=== PATIENT | female | born 1940 | race Caucasian/White ===

== ENCOUNTER → 2016-08-05 | Outpatient (CLI) | payer MEDICARE, OTHER ==
[~2016-08-05] MED LIST: ALDACTONE25 MG PO; ASPIRIN LOW DOS81 MG PO; ASPIRIN81 M1 PO; ATENOLOL25 MG PO; ATENOLOL50 M1 PO; ATENOLOL50 MG PO; CARDIZEM CD; CARDIZEM CD120 MG PO; CIPRO500 MG PO; COZAAR50 MG PO; DARVOCET N 1001 TAB PO; DIGOXIN0.125 MG PO; DILTIAZEM 24HR120 MG PO; DILTIAZEM120 MG PO; FIBER CON; FIBERCON500 MG PO; GLUCOPHAGE500 MG PO; HYDROCODONE BIT1 T11 PO; LASIX40 MG PO; LEVOXYL0.088 MG PO; LIBRAX 5 MG-2.51 CA1 PO; MAG-OX 400400 MG PO; METFORMIN500 MG PO; NEXIUM40 MG PO; Oscal,Oyster S500 MG PO; POTASSIUM CHLOR8 MEQ PO; POTASSIUM20 MEQ PO; PRAVACHOL40 MG PO; PRAVACHOL80 MG PO; PROAIR HFA0.09 MG/AC IH; PROAIR HFA8.5 GM IH; PROAIR INH; PROVENTIL2 MG/5 ML DEVI; SYNTHROID0.088 MG PO; TENORMIN50 MG PO; VITAMIN D1000 IU PO; VITAMIN D31000 IU PO
[2016-08-05 15:04] LABS: BASO # 0.1 10*3/uL (0.0-0.1); BASO % 0.8 % (0.0-1.0); EOS # 0.2 10*3/uL (0.0-0.4); EOS % 2.2 % (1.0-4.0); HEMATOCRIT 36.5 % (37.0-47.0); HEMOGLOBIN 11.6 g/dl (12.0-16.0); IG # 0.1 10*3/uL (0.0-0.1); LYMPH # 2.2 10*3/uL (1.3-4.4); MEAN CELL VOLUME 88.8 fl (81.0-99.0); MEAN CORPUSCULAR HGB 28.2 pg (27.0-31.0); MEAN CORPUSCULAR HGB CONC 31.8 g/dl (33.0-37.0); MEAN PLATELET VOLUME 9.5 fl (9.6-12.3); MONO # 0.5 10*3/uL (0.1-1.0); MONO % 7.2 % (3.0-9.0); NEUT # 4.4 10*3/uL (2.3-7.9); PLATELET COUNT AUTOMATED 235 10*3/uL (130-400); RED BLOOD COUNT 4.11 10*6/uL (4.10-5.10); RED CELL DISTRI WIDTH 15.3 % (0-14.5); WHITE BLOOD COUNT 7.4 10*3/uL (4.8-10.8)
[2016-08-05 15:22] LABS: ALBUMIN 3.5 gm/dl (3.1-4.5); POTASSIUM 4.1 mmol/L (3.5-5.1)
[2016-08-05 15:37] LABS: BILIRUBIN, TOTAL 0.3 mg/dl (0.2-1.0); DIGOXIN 1.03 ng/ml (0.8-2.0); THYROID STIM HORMONE (HS) 1.03 uIU/ml (0.358-4.75); TOTAL PROTEIN 7.5 gm/dL (6.4-8.2)
[2016-08-05 15:40] LABS: FERRITIN 12.6 ng/mL (10.0-291.0); VITAMIN D, 25-HYDROXY 37.7 ng/mL (30-100)
== END | disposition home or self-care (01) ==
LOC: RAD 07-31 13:30 → LAB 13:22 → RAD 13:30
PROVIDERS: Internal Medicine
DX: Z13.820 Encounter for screening for osteoporosis (principal); E11.9 Type 2 diabetes mellitus without complications; D64.89 Other specified anemias; I25.10 Atherosclerotic heart disease of native coronary artery without angina pectoris; E55.9 Vitamin D deficiency, unspecified; E03.9 Hypothyroidism, unspecified; Z78.0 Asymptomatic menopausal state

== ENCOUNTER 2016-08-19 06:24 | Emergency (ER) | payer MEDICARE, OTHER ==
[~2016-08-19] VITALS: Ht 170.1 cm; Wt 83.9 kg
[2016-08-19 07:18] LABS: BASO # 0.1 10*3/uL (0.0-0.1); BASO % 0.7 % (0.0-1.0); EOS # 0.2 10*3/uL (0.0-0.4); EOS % 2.4 % (1.0-4.0); HEMATOCRIT 36.4 % (37.0-47.0); HEMOGLOBIN 11.4 g/dl (12.0-16.0); IG # 0.1 10*3/uL (0.0-0.1); LYMPH # 2.3 10*3/uL (1.3-4.4); LYMPH % 27.8 % (27.0-41.0); MEAN CELL VOLUME 87.9 fl (81.0-99.0); MEAN CORPUSCULAR HGB 27.5 pg (27.0-31.0); MEAN CORPUSCULAR HGB CONC 31.3 g/dl (33.0-37.0); MEAN PLATELET VOLUME 9.5 fl (9.6-12.3); MONO # 0.6 10*3/uL (0.1-1.0); MONO % 7.2 % (3.0-9.0); NEUT % 61.2 % (47.0-73.0); PLATELET COUNT AUTOMATED 227 10*3/uL (130-400); RED BLOOD COUNT 4.14 10*6/uL (4.10-5.10); RED CELL DISTRI WIDTH 14.9 % (0-14.5); WHITE BLOOD COUNT 8.2 10*3/uL (4.8-10.8)
[2016-08-19 07:28] LABS: PROTHROMBIN TIME 10.6 SECONDS (9.0-12.4)
[2016-08-19 07:34] LABS: ALBUMIN 3.6 gm/dl (3.1-4.5); ALKALINE PHOSPHATASE 90 U/L (45-117); BILIRUBIN, TOTAL 0.4 mg/dl (0.2-1.0); BUN 20 mg/dl (7-24); C-REACTIVE PROTEIN 0.36 MG/DL (0-0.3); CARBON DIOXIDE 26 mmol/L (21-32); CHLORIDE 103 mmol/L (98-107); EST GLOM FILT AFRICAN AMERICAN > 60 ml/min; GLUCOSE 138 mg/dL (65-99); MAGNESIUM 1.5 mg/dL (1.5-2.1); SGOT/AST 17 IU/L (3-35); SGPT/ALT 23 U/L (12-78); SODIUM 140 mmol/L (136-145); TOTAL PROTEIN 7.3 gm/dL (6.4-8.2)
[2016-08-19 07:35] LABS: TROPONIN I < 0.015 ng/ml (<0.045)
[2016-08-19 07:44] LABS: DIGOXIN 1.64 ng/ml (0.8-2.0)
[2016-08-19 07:56] LABS: BILIRUBIN NEGATIVE (NEGATIVE); BLOOD NEGATIVE (NEGATIVE); CLARITY CLEAR (CLEAR); COLOR YELLOW (YELLOW); GLUCOSE NEGATIVE (NEGATIVE); KETONE NEGATIVE (NEGATIVE); LEUKO ESTERASE NEGATIVE (NEGATIVE); NITRITE NEGATIVE (NEGATIVE); PH 5.5 (5.0-9.0); PROTEIN NEGATIVE (NEGATIVE); SPECIFIC GRAVITY 1.015 (1.005-1.030); UROBILINOGEN 0.2 E.U./dl (0.2-1.0)
[2016-08-19 08:11] LABS: BACTERIA TRACE; URINE REFLEX COMMENT NO (NO)
[2016-08-19 08:43] VITALS: BP 119/67
[2016-08-19 09:15] LABS: LA>2 REFLEX 2 HR DRAW NOW
[2016-08-19 09:34] LABS: LA>2 RFLX FOLLOW UP AT 2 HRS 2.7 mmol/L (0.4-2.0)
[2016-08-19 11:26] LABS: LA>2 REFLEX 4 HR DRAW NOW
== END 2016-08-19 10:11 | disposition home or self-care (01) ==
LOC: ED 06:24
PROVIDERS: Emergency Medicine; Emergency Medicine Emergency Medical Services
DX: K59.00 Constipation, unspecified (principal); F41.9 Anxiety disorder, unspecified; J45.909 Unspecified asthma, uncomplicated; K21.9 Gastro-esophageal reflux disease without esophagitis; E11.9 Type 2 diabetes mellitus without complications; E03.9 Hypothyroidism, unspecified; I10 Essential (primary) hypertension; F17.200 Nicotine dependence, unspecified, uncomplicated; Z88.0 Allergy status to penicillin; Z88.6 Allergy status to analgesic agent; Z91.041 Radiographic dye allergy status; Z79.82 Long term (current) use of aspirin; Z79.899 Other long term (current) drug therapy

== ENCOUNTER → 2017-02-05 | Outpatient (CLI) | payer MEDICARE, OTHER ==
[2017-02-05 12:39] LABS: HEMATOCRIT 36.1 % (37.0-47.0); HEMOGLOBIN 11.6 g/dl (12.0-16.0); MEAN CELL VOLUME 90.5 fl (81.0-99.0); MEAN CORPUSCULAR HGB 29.1 pg (27.0-31.0); MEAN CORPUSCULAR HGB CONC 32.1 g/dl (33.0-37.0); MEAN PLATELET VOLUME 9.7 fl (9.6-12.3); RED BLOOD COUNT 3.99 10*6/uL (4.10-5.10); RED CELL DISTRI WIDTH 15.1 % (0-14.5); WHITE BLOOD COUNT 8.8 10*3/uL (4.8-10.8)
[2017-02-05 13:20] LABS: ALBUMIN 3.5 gm/dl (3.1-4.5); CREATININE 1.31 mg/dL (0.55-1.02); POTASSIUM 4.5 mmol/L (3.5-5.1); TOTAL PROTEIN 7.7 gm/dL (6.4-8.2)
== END | disposition home or self-care (01) ==
LOC: LAB 12:21
DX: E03.9 Hypothyroidism, unspecified (principal); E78.00 Pure hypercholesterolemia, unspecified; D64.89 Other specified anemias

== ENCOUNTER → 2017-04-10 | Outpatient (CLI) | payer MEDICARE, OTHER ==
[2017-04-10 11:20] LABS: BASO # 0.1 10*3/uL (0.0-0.1); BASO % 0.9 % (0.0-1.0); EOS # 0.2 10*3/uL (0.0-0.4); EOS % 1.9 % (1.0-4.0); HEMATOCRIT 37.2 % (37.0-47.0); HEMOGLOBIN 11.7 g/dl (12.0-16.0); LYMPH # 2.2 10*3/uL (1.3-4.4); LYMPH % 28.3 % (27.0-41.0); MEAN CELL VOLUME 90.1 fl (81.0-99.0); MEAN CORPUSCULAR HGB 28.3 pg (27.0-31.0); MEAN CORPUSCULAR HGB CONC 31.5 g/dl (33.0-37.0); MEAN PLATELET VOLUME 9.8 fl (9.6-12.3); MONO # 0.5 10*3/uL (0.1-1.0); MONO % 6.5 % (3.0-9.0); NEUT # 4.8 10*3/uL (2.3-7.9); NEUT % 61.4 % (47.0-73.0); PLATELET COUNT AUTOMATED 226 10*3/uL (130-400); RED BLOOD COUNT 4.13 10*6/uL (4.10-5.10); RED CELL DISTRI WIDTH 14.7 % (0-14.5); WHITE BLOOD COUNT 7.9 10*3/uL (4.8-10.8)
[2017-04-10 11:50] LABS: CREATININE 1.08 mg/dL (0.55-1.02); POTASSIUM 4.7 mmol/L (3.5-5.1)
[2017-04-10 11:50] LABS: IRON 49 ug/dL (50-170); TOTAL IRON BINDING CAPACITY 468 ug/dl (250-450)
[2017-04-10 12:03] LABS: DIGOXIN 1.52 ng/ml (0.8-2.0); THYROID STIM HORMONE (HS) 0.735 uIU/ml (0.358-4.75)
[2017-04-10 12:10] LABS: FERRITIN 12.3 ng/mL (10.0-291.0)
== END ==
LOC: LAB 10:34
PROVIDERS: Internal Medicine Cardiovascular Disease; Nurse Practitioner Family
DX: I25.10 Atherosclerotic heart disease of native coronary artery without angina pectoris (principal); D64.9 Anemia, unspecified; I48.1 Persistent atrial fibrillation

== ENCOUNTER → 2017-08-05 | Outpatient (CLI) | payer OTHER | END | disposition home or self-care (01) | LOC: RAD 11:12 | DX: M47.896 Other spondylosis, lumbar region (principal); D50.9 Iron deficiency anemia, unspecified; E11.9 Type 2 diabetes mellitus without complications ==

== ENCOUNTER 2017-10-23 20:51 | Inpatient (IN) | payer OTHER ==
[~2017-10-23] VITALS: Ht 170.1 cm; Wt 82.6 kg
--- NOTE | ~2017-10-23 | EKG ---
[place], [place] ELECTROCARDIOGRAM REPORT NAME: KAREN LY UNIT #: [id number] ROOM: 518 DOCTOR: RONAK DRAFT REPORT BIRTHDATE: [birth year] [facility] Test Date: 2017-10-23 Test Time: 20:57:21 Pat Name: KAREN LY Department: ER Room: 5 Gender: F Release Specialist: : 1940 Requested By: STAN DENIS Order Number: [id number] Reading MD: Enzo Moreno MD Measurements Intervals [place] Rate: 86 P: 56 OR: 202 QRS: 3 QRSD: 152 T: 193 QT: 405 QTc: 485 Interpretive Statements Sinus rhythm Left bundle branch block No previous ECG available for comparison Electronically Signed On 10-26-2017 14:02:16 PDT by Enzo Moreno MD Electronically Signed On 10-26-2017 14:03:33 PDT by Enzo Moreno MD CM:EKGRPT:ELECTROCARDIOGRAM REPORT [id number] 1403 STAN RUSSO DRAFT REPORT STAN DENIS DO
--- NOTE | ~2017-10-23 | EKG ---
[place], [place] ELECTROCARDIOGRAM REPORT NAME: KAREN LY UNIT #: [id number] ROOM: 518 DOCTOR: GLEN KLINE MD BIRTHDATE: [birth year] DOS: 10/23/2017 TIME: 2057 hours Normal sinus rhythm at 86 beats per minute with occasional atrial pacing is noted. Complete left bundle branch block. An abnormal ECG. No previous tracing is available for comparison. GLEN KLINE MD CM:EKGRPT:ELECTROCARDIOGRAM REPORT [id number] 1811 GLEN KLINE MD
--- NOTE | ~2017-10-23 | EKG ---
[place], [place] ELECTROCARDIOGRAM REPORT NAME: KAREN LY UNIT #: [id number] ROOM: 518 DOCTOR: GLEN KLINE MD BIRTHDATE: [birth year] DOS: 10/24/2017 TIME: 0002 hours. FINDINGS: 1. Normal sinus rhythm at 82 beats per minute with an occasional atrial pacing. 2. Complete left bundle-branch block. 3. No previous tracing is available for comparison. GLEN KLINE MD CM:EKGRPT:ELECTROCARDIOGRAM REPORT [id number] 1811 GLEN KLINE MD
--- NOTE | ~2017-10-23 | EKG ---
[place], [place] ELECTROCARDIOGRAM REPORT NAME: KAREN LY UNIT #: [id number] ROOM: [facility] DOCTOR: RONAK DRAFT REPORT BIRTHDATE: [birth year] [facility] Test Date: 2017-10-24 Test Time: 00:02:10 Pat Name: KAREN LY Department: 5 Room: [facility] Gender: F Assembly Technician: : 1940 Requested By: STAN DENIS Order Number: [id number] Reading MD: Enzo Moreno MD Measurements Intervals [place] Rate: 82 P: -9 IA: 225 QRS: -15 QRSD: 153 T: 173 QT: 392 QTc: 458 Interpretive Statements Atrial-paced complexes Prolonged IA interval( first degree block) Left bundle branch block Electronically Signed On 10-26-2017 14:04:34 PDT by Enzo Moreno MD CM:EKGRPT:ELECTROCARDIOGRAM REPORT 0002 1404 STAN RUSSO DRAFT REPORT STAN DENIS DO
--- NOTE | ~2017-10-23 | EKG ---
[place], [place] ELECTROCARDIOGRAM REPORT NAME: KAREN LY UNIT #: [id number] ROOM: [facility] DOCTOR: RONAK DRAFT REPORT BIRTHDATE: [birth year] [facility] Test Date: 2017-10-24 Test Time: 02:57:22 Pat Name: KAREN LY Department: 5 Room: [facility] Gender: F Computer Tester: : 1940 Requested By: STAN DENIS Order Number: [id number] Reading MD: Enzo Moreno MD Measurements Intervals [place] Rate: 81 P: 0 OR: 232 QRS: -24 QRSD: 148 T: 164 QT: 414 QTc: 481 Interpretive Statements Sinus rhythm Prolonged OR interval- first degree block Left bundle branch block Electronically Signed On 10-26-2017 14:05:02 PDT by Enzo Moreno MD CM:EKGRPT:ELECTROCARDIOGRAM REPORT [id number] 1405 STAN RUSSO DRAFT REPORT STAN DENIS DO
[2017-10-23 20:55] VITALS: BP 147/84
[2017-10-23 21:08] LABS: BASO # 0.1 10*3/uL (0.0-0.1); BASO % 0.4 % (0.0-1.0); EOS # 0.1 10*3/uL (0.0-0.4); EOS % 1.1 % (1.0-4.0); LYMPH # 3.5 10*3/uL (1.3-4.4); LYMPH % 30.3 % (27.0-41.0); MEAN CELL VOLUME 89.9 fl (81.0-99.0); MEAN CORPUSCULAR HGB 28.5 pg (27.0-31.0); MEAN CORPUSCULAR HGB CONC 31.7 g/dl (33.0-37.0); MEAN PLATELET VOLUME 9.7 fl (9.6-12.3); MONO % 8.6 % (3.0-9.0); NEUT # 6.7 10*3/uL (2.3-7.9); NEUT % 57.1 % (47.0-73.0); PLATELET COUNT AUTOMATED 208 10*3/uL (130-400); RED BLOOD COUNT 4.56 10*6/uL (4.10-5.10); RED CELL DISTRI WIDTH 15.7 % (0-14.5); WHITE BLOOD COUNT 11.7 10*3/uL (4.8-10.8)
[2017-10-23 21:16] VITALS: BP 136/82
[2017-10-23 21:18] LABS: ACT PARTIAL THROMBO TIME 20.3 SECONDS (20.8-31.5)
[2017-10-23 21:25] LABS: ALBUMIN 3.7 gm/dl (3.1-4.5); ALKALINE PHOSPHATASE 77 U/L (45-117); BUN 26 mg/dl (7-24); CHLORIDE 101 mmol/L (98-107); CREATININE 2.06 mg/dL (0.55-1.02); POTASSIUM 4.4 mmol/L (3.5-5.1); SGOT/AST 22 IU/L (3-35); SGPT/ALT 37 U/L (12-78); SODIUM 138 mmol/L (136-145); TOTAL PROTEIN 7.4 gm/dL (6.4-8.2)
[2017-10-23 21:27] LABS: TROPONIN I < 0.015 ng/ml (<0.045)
[2017-10-23 22:21] VITALS: BP 156/79
[2017-10-23 23:00] VITALS: BP 148/76
[2017-10-23 23:17] VITALS: BP 156/66
[2017-10-24] VITALS: BP 156/66
[2017-10-24 05:39] LABS: CREATININE 1.68 mg/dL (0.55-1.02); PHOSPHOROUS 4.5 mg/dL (2.5-4.9); POTASSIUM 4.3 mmol/L (3.5-5.1)
[2017-10-24 05:56] LABS: BASO # 0.1 10*3/uL (0.0-0.1); BASO % 0.7 % (0.0-1.0); EOS # 0.1 10*3/uL (0.0-0.4); EOS % 1.1 % (1.0-4.0); HEMATOCRIT 38.6 % (37.0-47.0); HEMOGLOBIN 11.9 g/dl (12.0-16.0); LYMPH % 33.3 % (27.0-41.0); MEAN CELL VOLUME 91.7 fl (81.0-99.0); MEAN CORPUSCULAR HGB 28.3 pg (27.0-31.0); MEAN CORPUSCULAR HGB CONC 30.8 g/dl (33.0-37.0); MEAN PLATELET VOLUME 10.1 fl (9.6-12.3); MONO # 0.8 10*3/uL (0.1-1.0); MONO % 9.1 % (3.0-9.0); NEUT # 4.9 10*3/uL (2.3-7.9); NEUT % 53.9 % (47.0-73.0); PLATELET COUNT AUTOMATED 187 10*3/uL (130-400); RED BLOOD COUNT 4.21 10*6/uL (4.10-5.10)
[2017-10-24 08:00] VITALS: BP 138/59
[2017-10-24 08:49] VITALS: BP 158/78
[2017-10-24 12:00] VITALS: BP 138/64
[2017-10-24 16:00] VITALS: BP 124/51
[2017-10-24 20:00] VITALS: BP 147/59
[2017-10-25] VITALS: BP 125/56
[2017-10-25 06:01] LABS: BASO # 0.1 10*3/uL (0.0-0.1); BASO % 0.7 % (0.0-1.0); EOS # 0.2 10*3/uL (0.0-0.4); EOS % 1.7 % (1.0-4.0); HEMATOCRIT 35.6 % (37.0-47.0); HEMOGLOBIN 10.9 g/dl (12.0-16.0); MEAN CELL VOLUME 91.5 fl (81.0-99.0); MEAN CORPUSCULAR HGB CONC 30.6 g/dl (33.0-37.0); MEAN PLATELET VOLUME 9.9 fl (9.6-12.3); MONO # 0.7 10*3/uL (0.1-1.0); NEUT # 4.8 10*3/uL (2.3-7.9); NEUT % 53.9 % (47.0-73.0); PLATELET COUNT AUTOMATED 158 10*3/uL (130-400); RED BLOOD COUNT 3.89 10*6/uL (4.10-5.10); WHITE BLOOD COUNT 8.9 10*3/uL (4.8-10.8)
[2017-10-25 06:29] LABS: CREATININE 1.09 mg/dL (0.55-1.02); POTASSIUM 4.4 mmol/L (3.5-5.1)
[2017-10-25 08:00] VITALS: BP 139/48
== END 2017-10-25 11:26 | disposition home or self-care (01) | DRG 391 ==
LOC: ED 20:51 → EDHOLD 22:30 → 5E 23:00
PROVIDERS: Emergency Medicine; Internal Medicine
PROC: 4B02XSZ Measurement of Cardiac Pacemaker, External Approach (ICD-10-PCS; principal; 2017-10-23)
DX: K21.0 Gastro-esophageal reflux disease with esophagitis (principal); N17.0 Acute kidney failure with tubular necrosis; D68.0 Von Willebrand disease; E44.0 Moderate protein-calorie malnutrition; E11.22 Type 2 diabetes mellitus with diabetic chronic kidney disease; I49.5 Sick sinus syndrome; E11.65 Type 2 diabetes mellitus with hyperglycemia; E03.9 Hypothyroidism, unspecified; D72.825 Bandemia; F41.9 Anxiety disorder, unspecified; K22.719 Barrett's esophagus with dysplasia, unspecified; J45.20 Mild intermittent asthma, uncomplicated; E78.2 Mixed hyperlipidemia; N18.3 Chronic kidney disease, stage 3 (moderate); I12.9 Hypertensive chronic kidney disease with stage 1 through stage 4 chronic kidney disease, or unspecified chronic kidney disease; Z96.652 Presence of left artificial knee joint; Z82.3 Family history of stroke; Z80.8 Family history of malignant neoplasm of other organs or systems; Z82.49 Family history of ischemic heart disease and other diseases of the circulatory system; Z90.710 Acquired absence of both cervix and uterus; Z95.0 Presence of cardiac pacemaker; Z88.0 Allergy status to penicillin; Z88.6 Allergy status to analgesic agent; Z88.8 Allergy status to other drugs, medicaments and biological substances; Z91.041 Radiographic dye allergy status; Z79.899 Other long term (current) drug therapy; Z79.82 Long term (current) use of aspirin; Z68.28 Body mass index [BMI] 28.0-28.9, adult

== ENCOUNTER 2019-04-04 16:08 | Inpatient (IN) | payer OTHER ==
[~2019-04-04] VITALS: Ht 170.1 cm; Wt 86.4 kg
[~2019-04-04 16:08] MED LIST changes: +KLOR-CON 1010 ME1 PO; +LASIX20 MG PO; +METOPROLOL TART50 M1 PO; +NEXIUM 24HR20 M1 PO; +TOPROL XL50 M1 PO; +VITAMIN B1250 MCG PO; +Zofran4 MG PO
[2019-04-04 16:10] VITALS: BP 151/84
[2019-04-04 16:30] LABS: BASO % 0.6 % (0.0-1.0); EOS # 0.2 10*3/uL (0.0-0.4); EOS % 2.3 % (1.0-4.0); HEMOGLOBIN 12.8 g/dl (12.0-16.0); LYMPH % 30.3 % (27.0-41.0); MEAN CELL VOLUME 89.1 fl (81.0-99.0); MEAN CORPUSCULAR HGB 27.8 pg (27.0-31.0); MEAN CORPUSCULAR HGB CONC 31.2 g/dl (33.0-37.0); MONO # 0.4 10*3/uL (0.1-1.0); MONO % 6.5 % (3.0-9.0); NEUT # 3.9 10*3/uL (2.3-7.9); NEUT % 59.7 % (47.0-73.0); PLATELET COUNT AUTOMATED 205 10*3/uL (130-400); RED CELL DISTRI WIDTH 16.5 % (0-14.5); WHITE BLOOD COUNT 6.6 10*3/uL (4.8-10.8)
[2019-04-04 16:41] LABS: ACT PARTIAL THROMBO TIME 24.5 SECONDS (20.0-32.1); INTERNATIONAL NORM RATIO 0.9 (2.0-3.5)
[2019-04-04 16:46] LABS: ALBUMIN 3.4 gm/dl (3.1-4.5); ALKALINE PHOSPHATASE 114 U/L (45-117); BUN 13 mg/dl (7-24); CHLORIDE 108 mmol/L (98-107); CREATININE 0.95 mg/dL (0.55-1.02); POTASSIUM 3.7 mmol/L (3.5-5.1); SGOT/AST 12 IU/L (3-35); SGPT/ALT 20 U/L (12-78); SODIUM 141 mmol/L (136-145)
[2019-04-04 16:49] LABS: TROPONIN I < 0.015 ng/ml (<0.045)
[2019-04-04 18:42] VITALS: BP 141/67
--- NOTE | 2019-04-04 19:44 | NUR ---
PT GIVEN BOX LUNCH . LEVAQUIN INFUSING VOICES NO COMPLAINTS . DENIES ANY WOUNDS CHRISTOPHER CONLEY RN.
[2019-04-04 19:45] VITALS: BP 144/60
[2019-04-04 21:30] VITALS: BP 142/70
--- NOTE | 2019-04-04 21:30 | NUR ---
Time: 2129 A 78 year old FEMALE admitted to under services of JONATHAN MOROCHO DO. Pt. arrived via stretcher from ER. Chief complaint: C/O SOB X 1 WEEK, AND COUGH X 1MONTH. ALFONZO SAMS
--- NOTE | 2019-04-05 03:47 | NUR ---
24 HR chart check completed.
[2019-04-05 06:25] LABS: HEMATOCRIT 42.9 % (37.0-47.0); HEMOGLOBIN 13.4 g/dl (12.0-16.0); LYMPH # 0.8 10*3/uL (1.3-4.4); LYMPH % 15.6 % (27.0-41.0); MEAN CELL VOLUME 89.6 fl (81.0-99.0); MEAN CORPUSCULAR HGB CONC 31.2 g/dl (33.0-37.0); MONO % 0.8 % (3.0-9.0); NEUT # 4.1 10*3/uL (2.3-7.9); PLATELET COUNT AUTOMATED 223 10*3/uL (130-400); RED BLOOD COUNT 4.79 10*6/uL (4.10-5.10); RED CELL DISTRI WIDTH 16.4 % (0-14.5); WHITE BLOOD COUNT 4.9 10*3/uL (4.8-10.8)
[2019-04-05 06:40] LABS: ALBUMIN 3.8 gm/dl (3.1-4.5); BUN 15 mg/dl (7-24); CHLORIDE 106 mmol/L (98-107); CHOLESTEROL 231 mg/dL (<200); CREATININE 0.93 mg/dL (0.55-1.02); PHOSPHOROUS 2.9 mg/dL (2.5-4.9); SGOT/AST 11 IU/L (3-35); SGPT/ALT 23 U/L (12-78); SODIUM 139 mmol/L (136-145); TRIGLYCERIDES 117 mg/dl (<150); VLDL CHOLESTEROL 23 mg/dL (6-40)
[2019-04-05 06:48] LABS: ALKALINE PHOSPHATASE 123 U/L (45-117); HDL CHOLESTEROL 58 mg/dl (40-60); LDL CHOLESTEROL 150 mg/dL (9-159); THYROID STIM HORMONE (HS) 0.505 uIU/ml (0.358-4.75)
[2019-04-05 08:00] VITALS: BP 145/86
--- NOTE | 2019-04-05 08:33 | NUR ---
Patient resting quietly with no c/o discomfort. Respirations easy and regular. Vital signs stable. No overt distress. RADHA TREVINO
--- NOTE | 2019-04-05 10:45 | NUR ---
PT MEDICATED WITH PO TYLENOL PER PRN ORDER FOR C/O HEADACHE. WILL MONITOR EFFECTIVENESS.
--- NOTE | 2019-04-05 11:06 | NUR ---
Career Placement Specialist in to talk to patient. Patient states lives at HOME with SON. There are NO steps in the home. Physician: JEAN BISHOP [facility] Home health services: NONE Patient's level of ADLs: INDEPENDENT Patient has working utilities: YES DME: HAS WALKER AND CAN SHE USES OCCASIONALLY IF NEEDED Follow-up physician's appointment after d/c: WILL BE MADE BY HOSPITALIST NURSE DIRECTOR ON DISCHARGE Does patient want to access PORTAL?: NO Discharge plan . PT LIVES WITH SON AND IS INDEPENDENT IN HER CARE. STATES IT IS A ONE STORY HOUSE. DENIES SHE WILL HAVE ANY NEEDS ON DISCHARGE. PLANS TO RETURN TO SONS HOME ON DISCHARGE. WILL CONTINUE TO FOLLOW. STATES SON WILL TAKE HER HOME. MELANIA BRANDON
[2019-04-05 12:00] VITALS: BP 119/58
[2019-04-05 16:00] VITALS: BP 138/70
[2019-04-05 20:00] VITALS: BP 117/70; BP 134/70
--- NOTE | 2019-04-05 20:20 | NUR ---
PATIENT AWAKE & ALERT SITTING IN BED. PATIENT HAS NO COMPLAINTS AT THIS TIME. SEE ASSESSMENT. CALL LIGHT IN REACH. WILL MONITOR.
[2019-04-06] VITALS: BP 130/70
--- NOTE | 2019-04-06 01:33 | NUR ---
24 HR chart check completed.
[2019-04-06 08:00] VITALS: BP 154/75
[2019-04-06] MEDS ORDERED: LEVAQUIN750 M1 PO (14:09)
[2019-04-06] MEDS ORDERED: PREDNISONE10 MG PO (14:09)
--- NOTE | 2019-04-06 15:03 | NUR ---
Discharge instructions reviewed with patient/family. Patient receptive and verbalizes understanding. Follow-up care arranged. Written instructions given to patient/family. MONICA STUBBS
== END 2019-04-06 15:03 | disposition home or self-care (01) | DRG 190 ==
LOC: ED 16:08 → EDHOLD 18:07 → 4E 18:07 → EDHOLD 18:39 → 4E 19:22
PROVIDERS: Emergency Medicine; Student in an Organized Health Care Education/Training Program; ADMIT Family Medicine
DX: J44.0 Chronic obstructive pulmonary disease with (acute) lower respiratory infection (principal); J18.9 Pneumonia, unspecified organism; D68.0 Von Willebrand disease; E44.0 Moderate protein-calorie malnutrition; J44.1 Chronic obstructive pulmonary disease with (acute) exacerbation; E11.65 Type 2 diabetes mellitus with hyperglycemia; E03.9 Hypothyroidism, unspecified; F41.9 Anxiety disorder, unspecified; K22.719 Barrett's esophagus with dysplasia, unspecified; K21.9 Gastro-esophageal reflux disease without esophagitis; J45.20 Mild intermittent asthma, uncomplicated; E53.8 Deficiency of other specified B group vitamins; E78.2 Mixed hyperlipidemia; N18.3 Chronic kidney disease, stage 3 (moderate); I12.9 Hypertensive chronic kidney disease with stage 1 through stage 4 chronic kidney disease, or unspecified chronic kidney disease; E11.22 Type 2 diabetes mellitus with diabetic chronic kidney disease; Z96.652 Presence of left artificial knee joint; Z95.0 Presence of cardiac pacemaker; Z90.710 Acquired absence of both cervix and uterus; Z82.3 Family history of stroke; Z80.9 Family history of malignant neoplasm, unspecified; Z82.49 Family history of ischemic heart disease and other diseases of the circulatory system; Z88.6 Allergy status to analgesic agent; Z88.5 Allergy status to narcotic agent; Z88.0 Allergy status to penicillin; Z88.8 Allergy status to other drugs, medicaments and biological substances; Z79.899 Other long term (current) drug therapy

== ENCOUNTER → 2019-05-25 | Outpatient (CLI) | payer OTHER ==
[~2019-05-25] MED LIST changes: +FEOSOL325 MG PO; +LEVAQUIN750 M1 PO; +PREDNISONE10 MG PO
== END | disposition home or self-care (01) ==
LOC: RAD 13:01
DX: J98.8 Other specified respiratory disorders (principal)

== ENCOUNTER → 2019-06-16 | Outpatient (CLI) | payer OTHER ==
--- NOTE | 2019-06-16 12:30 | NUR ---
INFORMED CONSENT OBTAINED FOR LEXISCAN NUCLEAR STRESS TEST WITH DR. REYES. RESTING EKG PACED WITH A RESTING HR OF 77 WITH BP 122/72. LUNGS CLEAR WITH SPO2 OF 98% ON ROOM AIR. PT COMPLETED A 1:00 LEXISCAN PROTOCOL RECEIVING LEXISCAN 0.4 MG IV OVER 10 SECONDS. HAD NO CHEST PAIN. EKG NONDIAGNOSTIC WITH PACED RHYTHM. HAD C/O FEELING SHORT OF BREATH AND "STOMACH CRAMPING" THAT WAS RELIEVED IN RECOVERY. HAD A PEAK HR OF 93 WITH BP OF 120/60. LAST RECOVERY HR OF 71 WITH BP OF 110/56. AWAITING SCANNING IN STABLE CONDITION.
== END | disposition home or self-care (01) ==
LOC: CARD 00:05
DX: I10 Essential (primary) hypertension (principal); I25.10 Atherosclerotic heart disease of native coronary artery without angina pectoris; R53.83 Other fatigue; R06.09 Other forms of dyspnea; R06.02 Shortness of breath; R53.81 Other malaise; R73.03 Prediabetes

== ENCOUNTER → 2019-12-27 | Outpatient (CLI) | payer OTHER | END | disposition home or self-care (01) | LOC: CT 08:59 | PROVIDERS: ATTEND Physician Assistant | DX: K57.30 Diverticulosis of large intestine without perforation or abscess without bleeding (principal); K44.9 Diaphragmatic hernia without obstruction or gangrene; K63.89 Other specified diseases of intestine; I10 Essential (primary) hypertension; K21.9 Gastro-esophageal reflux disease without esophagitis; E03.9 Hypothyroidism, unspecified; I25.10 Atherosclerotic heart disease of native coronary artery without angina pectoris; N28.89 Other specified disorders of kidney and ureter; M47.816 Spondylosis without myelopathy or radiculopathy, lumbar region; Z95.0 Presence of cardiac pacemaker; Z98.890 Other specified postprocedural states ==

== ENCOUNTER 2020-01-19 21:54 | Emergency (ER) | payer OTHER ==
[2020-01-19 22:06] VITALS: BP 164/79
[2020-01-19 22:32] LABS: BASO % 0.5 % (0.0-1.0); EOS # 0.1 10*3/uL (0.0-0.4); EOS % 1.6 % (1.0-4.0); LYMPH # 2.3 10*3/uL (1.3-4.4); LYMPH % 30.4 % (27.0-41.0); MEAN CELL VOLUME 89.7 fl (81.0-99.0); MEAN CORPUSCULAR HGB 28.9 pg (27.0-31.0); MEAN CORPUSCULAR HGB CONC 32.2 g/dl (33.0-37.0); MEAN PLATELET VOLUME 9.7 fl (9.6-12.3); MONO # 0.7 10*3/uL (0.1-1.0); MONO % 8.5 % (3.0-9.0); NEUT # 4.5 10*3/uL (2.3-7.9); NEUT % 58.2 % (47.0-73.0); PLATELET COUNT AUTOMATED 204 10*3/uL (130-400); RED BLOOD COUNT 4.57 10*6/uL (4.10-5.10); RED CELL DISTRI WIDTH 14.2 % (0-14.5); WHITE BLOOD COUNT 7.6 10*3/uL (4.8-10.8)
[2020-01-19 22:48] LABS: ALBUMIN 3.3 gm/dl (3.1-4.5); ALKALINE PHOSPHATASE 133 U/L (45-117); BUN 14 mg/dl (7-24); CHLORIDE 111 mmol/L (98-107); CREATININE 1.08 mg/dL (0.55-1.02); SGOT/AST 9 IU/L (3-35); SGPT/ALT 18 U/L (12-78); SODIUM 142 mmol/L (136-145); TOTAL PROTEIN 7.1 gm/dL (6.4-8.2)
[2020-01-19 22:49] LABS: TROPONIN I < 0.015 ng/ml (<0.045)
== END 2020-01-20 02:07 | disposition home or self-care (01) ==
LOC: ED 21:54
PROVIDERS: Internal Medicine
DX: E83.42 Hypomagnesemia (principal); Z79.899 Other long term (current) drug therapy; Z91.041 Radiographic dye allergy status; Z88.0 Allergy status to penicillin

== ENCOUNTER → 2020-07-23 | Outpatient (CLI) | payer OTHER ==
[2020-07-23 14:54] LABS: BASO # 0.1 10*3/uL (0.0-0.1); BASO % 0.7 % (0.0-1.0); EOS # 0.1 10*3/uL (0.0-0.4); EOS % 1.3 % (1.0-4.0); HEMATOCRIT 44.3 % (37.0-47.0); LYMPH # 2.3 10*3/uL (1.3-4.4); LYMPH % 25.9 % (27.0-41.0); MEAN CELL VOLUME 93.1 fl (81.0-99.0); MEAN CORPUSCULAR HGB 28.6 pg (27.0-31.0); MEAN CORPUSCULAR HGB CONC 30.7 g/dl (33.0-37.0); MEAN PLATELET VOLUME 9.9 fl (9.6-12.3); MONO # 0.5 10*3/uL (0.1-1.0); MONO % 5.9 % (3.0-9.0); NEUT # 5.8 10*3/uL (2.3-7.9); NEUT % 65.6 % (47.0-73.0); PLATELET COUNT AUTOMATED 206 10*3/uL (130-400); RED BLOOD COUNT 4.76 10*6/uL (4.10-5.10); RED CELL DISTRI WIDTH 14.3 % (0-14.5); WHITE BLOOD COUNT 8.8 10*3/uL (4.8-10.8)
[2020-07-23 15:25] LABS: BUN 14 mg/dl (7-24); CHLORIDE 110 mmol/L (98-107); SODIUM 139 mmol/L (136-145)
== END | disposition home or self-care (01) ==
LOC: US 13:00
PROVIDERS: ATTEND Internal Medicine Cardiovascular Disease
DX: M71.22 Synovial cyst of popliteal space [Baker], left knee (principal); M71.21 Synovial cyst of popliteal space [Baker], right knee; R19.09 Other intra-abdominal and pelvic swelling, mass and lump; I73.9 Peripheral vascular disease, unspecified; L81.9 Disorder of pigmentation, unspecified; I25.10 Atherosclerotic heart disease of native coronary artery without angina pectoris; R05 Cough; Z95.0 Presence of cardiac pacemaker

== ENCOUNTER 2020-08-26 10:18 | Emergency (ER) | payer OTHER ==
[~2020-08-26] VITALS: Wt 88.5 kg
[2020-08-26 14:18] VITALS: BP 130/80
[2020-08-26] MEDS ORDERED: TYLENOL325 M1 PO (14:20)
[2020-08-26] MEDS ORDERED: ASPERCREME LID1 EACH T (14:20)
== END 2020-08-26 14:07 | disposition home or self-care (01) ==
LOC: ED 10:18
DX: S22.41XA Multiple fractures of ribs, right side, initial encounter for closed fracture (principal); F41.9 Anxiety disorder, unspecified; J44.9 Chronic obstructive pulmonary disease, unspecified; K21.9 Gastro-esophageal reflux disease without esophagitis; E03.9 Hypothyroidism, unspecified; E78.2 Mixed hyperlipidemia; E44.0 Moderate protein-calorie malnutrition; E11.22 Type 2 diabetes mellitus with diabetic chronic kidney disease; I12.9 Hypertensive chronic kidney disease with stage 1 through stage 4 chronic kidney disease, or unspecified chronic kidney disease; N18.30 Chronic kidney disease, stage 3 unspecified; Z91.048 Other nonmedicinal substance allergy status; Z88.6 Allergy status to analgesic agent; Z88.5 Allergy status to narcotic agent; Z91.041 Radiographic dye allergy status; Z88.0 Allergy status to penicillin; Z79.899 Other long term (current) drug therapy; W22.8XXA Striking against or struck by other objects, initial encounter; Y93.89 Activity, other specified; Y92.89 Other specified places as the place of occurrence of the external cause; Y99.8 Other external cause status

== ENCOUNTER → 2021-07-19 | Outpatient (CLI) | payer OTHER ==
[~2021-07-19] MED LIST changes: +ASPERCREME LID1 EACH T; +TYLENOL325 M1 PO
== END | disposition home or self-care (01) ==
LOC: US 15:56
PROVIDERS: ATTEND Internal Medicine Cardiovascular Disease
DX: M71.22 Synovial cyst of popliteal space [Baker], left knee (principal); R60.0 Localized edema

== ENCOUNTER → 2021-08-08 | Outpatient (CLI) | payer OTHER ==
[2021-08-08 16:43] LABS: BASO # 0.1 10*3/uL (0.0-0.1); BASO % 0.5 % (0.0-1.0); EOS # 0.1 10*3/uL (0.0-0.4); EOS % 1.4 % (1.0-4.0); HEMATOCRIT 41.9 % (37.0-47.0); LYMPH # 2.5 10*3/uL (1.3-4.4); LYMPH % 24.2 % (27.0-41.0); MEAN CELL VOLUME 90.9 fl (81.0-99.0); MEAN CORPUSCULAR HGB 29.5 pg (27.0-31.0); MEAN CORPUSCULAR HGB CONC 32.5 g/dl (33.0-37.0); MEAN PLATELET VOLUME 10.1 fl (9.6-12.3); MONO # 0.6 10*3/uL (0.1-1.0); MONO % 5.7 % (3.0-9.0); NEUT # 6.9 10*3/uL (2.3-7.9); NEUT % 67.6 % (47.0-73.0); PLATELET COUNT AUTOMATED 205 10*3/uL (130-400); RED BLOOD COUNT 4.61 10*6/uL (4.10-5.10); RED CELL DISTRI WIDTH 14.6 % (0-14.5); WHITE BLOOD COUNT 10.1 10*3/uL (4.8-10.8)
[2021-08-08 17:02] LABS: BUN 15 mg/dl (7-24); CHLORIDE 108 mmol/L (98-107); CREATININE 0.85 mg/dL (0.55-1.02); POTASSIUM 3.3 mmol/L (3.5-5.1); SODIUM 143 mmol/L (136-145)
== END | disposition home or self-care (01) ==
LOC: LAB 16:12
PROVIDERS: ATTEND Internal Medicine Cardiovascular Disease
DX: R60.0 Localized edema (principal)

== ENCOUNTER → 2021-09-20 | Outpatient (CLI) | payer OTHER ==
[2021-09-20 15:18] LABS: BUN 18 mg/dl (7-24); CHLORIDE 109 mmol/L (98-107); CREATININE 0.87 mg/dL (0.55-1.02); POTASSIUM 3.6 mmol/L (3.5-5.1); SODIUM 142 mmol/L (136-145)
== END | disposition home or self-care (01) ==
LOC: LAB 14:43
PROVIDERS: ATTEND Internal Medicine Cardiovascular Disease
DX: I10 Essential (primary) hypertension (principal)

== ENCOUNTER → 2021-11-08 | Outpatient (CLI) | payer OTHER ==
[2021-11-08 15:25] LABS: BUN 12 mg/dl (7-24); CHLORIDE 109 mmol/L (98-107); CREATININE 0.76 mg/dL (0.55-1.02); SODIUM 144 mmol/L (136-145)
== END | disposition home or self-care (01) ==
LOC: LAB 14:28
PROVIDERS: ATTEND Internal Medicine Cardiovascular Disease
DX: I10 Essential (primary) hypertension (principal)

== ENCOUNTER → 2022-05-12 | Outpatient (CLI) | payer OTHER ==
[2022-05-12 16:26] LABS: ALKALINE PHOSPHATASE 73 U/L (46-116); BUN 10 mg/dl (9-23); CHLORIDE 102 mmol/L (98-107); POTASSIUM 3.8 mmol/L (3.4-5.1); SGPT/ALT 14 U/L (10-49); TOTAL PROTEIN 7.1 gm/dL (6.0-8.0)
== END | disposition home or self-care (01) ==
LOC: CT 04:03
PROVIDERS: ATTEND Physician Assistant
DX: K57.32 Diverticulitis of large intestine without perforation or abscess without bleeding (principal); I10 Essential (primary) hypertension

== ENCOUNTER → 2022-09-30 | Outpatient (CLI) | payer OTHER | END | disposition home or self-care (01) | LOC: RAD 01:15 | PROVIDERS: ATTEND Specialist | DX: R13.10 Dysphagia, unspecified (principal) ==

== ENCOUNTER → 2022-10-17 | Outpatient (CLI) | payer OTHER ==
[2022-10-17 15:45] LABS: BUN 13 mg/dl (9-23); CHLORIDE 106 mmol/L (98-107); POTASSIUM 3.8 mmol/L (3.4-5.1)
== END | disposition home or self-care (01) ==
LOC: LAB 14:51
PROVIDERS: ATTEND Registered Nurse
DX: I25.10 Atherosclerotic heart disease of native coronary artery without angina pectoris (principal)

== ENCOUNTER → 2023-05-20 | Outpatient (CLI) | payer OTHER | END | disposition home or self-care (01) | LOC: RAD 15:26 | PROVIDERS: ATTEND Physician Assistant | DX: J18.9 Pneumonia, unspecified organism (principal) ==

== ENCOUNTER → 2023-07-13 | Outpatient (CLI) | payer OTHER ==
[2023-07-13 12:09] LABS: BASO # 0.1 10*3/uL (0.0-0.1); BASO % 0.6 % (0.0-1.0); EOS # 0.1 10*3/uL (0.0-0.4); EOS % 1.5 % (1.0-4.0); HEMATOCRIT 45.5 % (37.0-47.0); LYMPH % 22.5 % (27.0-41.0); MEAN CELL VOLUME 93.8 fl (81.0-99.0); MEAN CORPUSCULAR HGB 29.5 pg (27.0-31.0); MEAN CORPUSCULAR HGB CONC 31.4 g/dl (33.0-37.0); MEAN PLATELET VOLUME 10.2 fl (9.6-12.3); MONO # 0.5 10*3/uL (0.1-1.0); MONO % 5.9 % (3.0-9.0); NEUT % 68.7 % (47.0-73.0); PLATELET COUNT AUTOMATED 222 10*3/uL (130-400); RED BLOOD COUNT 4.85 10*6/uL (4.10-5.10); WHITE BLOOD COUNT 8.8 10*3/uL (4.8-10.8)
[2023-07-13 12:34] LABS: BUN 15 mg/dl (9-23); CHLORIDE 104 mmol/L (98-107); POTASSIUM 3.6 mmol/L (3.4-5.1)
== END | disposition home or self-care (01) ==
LOC: LAB 11:23
PROVIDERS: ATTEND Registered Nurse
DX: I25.10 Atherosclerotic heart disease of native coronary artery without angina pectoris (principal)

== ENCOUNTER → 2023-09-10 | Outpatient (CLI) | payer OTHER | END | disposition home or self-care (01) | LOC: US 09-04 14:30 | PROVIDERS: ATTEND Physician Assistant | DX: R22.1 Localized swelling, mass and lump, neck (principal); R13.10 Dysphagia, unspecified ==

== ENCOUNTER 2024-11-04 14:30 | Emergency (ER) | payer OTHER ==
[~2024-11-04] VITALS: Ht 165.1 cm; Wt 86.2 kg
[2024-11-04 14:36] VITALS: BP 140/59
[2024-11-04 14:56] LABS: BASO # 0.0 10*3/uL (0.0-0.1); BASO % 0.6 % (0.0-1.0); EOS # 0.1 10*3/uL (0.0-0.4); EOS % 1.8 % (1.0-4.0); MEAN CELL VOLUME 93.5 fl (81.0-99.0); MEAN CORPUSCULAR HGB 29.6 pg (27.0-31.0); MEAN PLATELET VOLUME 9.7 fl (9.6-12.3); MONO # 0.4 10*3/uL (0.1-1.0); MONO % 7.1 % (3.0-9.0); NEUT # 3.8 10*3/uL (2.3-7.9); NEUT % 61.3 % (47.0-73.0); NUCLEATED RED BLOOD CELL 0.0 % (0.0-0.0); NUCLEATED RED BLOOD CELL 0.0 10*3/uL (0.0-0.0); PLATELET COUNT AUTOMATED 179 10*3/uL (130-400); RED CELL DISTRI WIDTH 13.3 % (0-14.5)
[2024-11-04 15:08] LABS: ACT PARTIAL THROMBO TIME 27.6 SECONDS (20.0-32.1)
[2024-11-04 15:16] LABS: BUN 19.0 mg/dl (9-23)
[2024-11-04] MEDS ORDERED: SODIUM CHLORIDE 0.9% 1,000 ML IV ONE (15:25)
== END 2024-11-04 18:15 | disposition home or self-care (01) ==
LOC: ED 14:30
PROVIDERS: Internal Medicine
DX: R07.89 Other chest pain (principal); Z98.890 Other specified postprocedural states; Z90.710 Acquired absence of both cervix and uterus; Z88.0 Allergy status to penicillin; Z88.8 Allergy status to other drugs, medicaments and biological substances; Z88.5 Allergy status to narcotic agent